=== PATIENT | female | born 1995 | race African-American/Black ===

== ENCOUNTER 2019-12-17 20:03 | Emergency (ER) | payer OTHER ==
[~2019-12-17] VITALS: Ht 170.2 cm; Wt 100.9 kg
[2019-12-17 20:16] VITALS: BP 141/92
== END 2019-12-17 22:00 | disposition home or self-care (01) ==
LOC: ER 21:26
DX: F41.9 Anxiety disorder, unspecified (principal); I10 Essential (primary) hypertension; E11.9 Type 2 diabetes mellitus without complications
CPT/HCPCS: 81025; 82962; 99283